=== PATIENT | male | born 1970 | race African-American/Black ===

== ENCOUNTER 2017-07-16 12:40 | Emergency (ER) | payer MEDICAID, OTHER ==
[~2017-07-16] VITALS: Ht 188 cm; Wt 106.0 kg
[2017-07-16] MEDS ORDERED: HYDRALAZINE 20MG/ML VIAL IV ONE (14:30)
[2017-07-16] MEDS ORDERED: METOPROLOL TARTRATE 50MG TABLET PO ONE (14:30)
[2017-07-16 17:19] VITALS: BP 205/158
== END 2017-07-16 17:25 | disposition left against medical advice (07) ==
LOC: ER 14:37
DX: I10 Essential (primary) hypertension (principal)
CPT/HCPCS: 93005; 96374; 99284; J0360; Z7610